=== PATIENT | male | born 1970 | race Caucasian/White ===

== ENCOUNTER 2016-03-21 07:05 | Emergency (ER) | payer SELFPAY ==
[~2016-03-21] VITALS: Ht 165.1 cm; Wt 72.6 kg
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
[2016-03-21 07:50] LABS: BILIRUBIN,URINE NEGATIVE (NEGATIVE); KETONES,URINE NEGATIVE (NEGATIVE); LEUKOCYTE ESTERASE ,URINE NEGATIVE (NEGATIVE); NITRITE,URINE NEGATIVE (NEGATIVE); PH,URINE 5 (5-9); PROTEIN,URINE NEGATIVE (NEGATIVE); UROBILINOGEN,URINE NORMAL (NORMAL)
[2016-03-21 07:59] LABS: SQUAMOUS EPITHELIAL CELL,UR 0-2 /HPF
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
[2016-03-21] MEDS ORDERED: DICL50TA4 PO (08:13)
[2016-03-21] MEDS ORDERED: KETOROLAC 60 MG/2 ML VIAL IM ONE (08:15)
[2016-03-21 08:57] VITALS: BP 132/98
== END 2016-03-21 08:57 | disposition home or self-care (01) ==
LOC: EDUNIT# 07:05 → ER 07:09
DX: S20.211A Contusion of right front wall of thorax, initial encounter (principal); I10 Essential (primary) hypertension; Z87.891 Personal history of nicotine dependence; V86.59XA Driver of other special all-terrain or other off-road motor vehicle injured in nontraffic accident, initial encounter; Y99.8 Other external cause status
CPT/HCPCS: 71101; 81000; 96372

== ENCOUNTER 2021-01-18 18:01 | Emergency (ER) | payer SELFPAY ==
[~2021-01-18] VITALS: Ht 167.7 cm; Wt 76.0 kg
[~2021-01-18 18:01] MED LIST: DICL50TA4 PO
--- NOTE | 2021-01-18 19:04 | ED General ---
General Stated Complaint: COVID EXPOSURE, "HEAD COLD" Source of Information: Patient Exam Limitations: No Limitations History of Present Illness Date Seen by Provider: Jan 18, 2021 Time Seen by Provider: 18:40 Initial Comments This 50-year-old gentleman presents to the emergency room with complaints of mild cough and congestion and some mild abdominal cramping. The family had a Covid exposure over the and through his 's work. He denies any fever or other significant symptoms. Allergies and Home Medications Allergies Coded Allergies: No Known Drug Allergies (Verified , 03/03/09) Patient Home Medication List Home Medication List Reviewed: Yes Diclofenac Potassium (Diclofenac Potassium) 50 Mg Tablet, 50 MG PO Q6H PRN for rib pain Prescribed by: ARMAAN MCLAUGHLIN on 03/21/16 0813 Review of Systems Review of Systems Constitutional: no symptoms reported EENTM: see HPI Respiratory: see HPI Cardiovascular: no symptoms reported Gastrointestinal: see HPI Genitourinary: no symptoms reported Musculoskeletal: no symptoms reported Skin: no symptoms reported Psychiatric/Neurological: No Symptoms Reported Hematologic/Lymphatic: No Symptoms Reported Immunological/Allergic: no symptoms reported Past Culkbbu-Erqaso-Uihiww Hx Patient Social History Tobacco Use?: No Smoking Status: Former Smoker Substance use?: No Alcohol Use?: Yes Alcohol Frequency: Once in a while Past Medical History Surgeries: Yes Appendectomy Respiratory: No Cardiac: Yes Hypertension Reproductive Disorders: No Sexually Transmitted Disease: No Genitourinary: No Gastrointestinal: No Musculoskeletal: No Endocrine: No HEENT: No Cancer: No Psychosocial: No Integumentary: No Physical Exam Vital Signs Vital Signs - First Documented 01/18/21 18:36 Temp 36.8 Pulse 85 Resp 20 B/P (MAP) 131/103 (112) Pulse Ox 96 O2 Delivery Room Air Capillary Refill : Height, Weight, BMI Height: 5'5" Weight: 160lbs. oz. [id number]; BMI Method:Stated General Appearance: No Apparent Distress, WD/WN HEENT: PERRL/EOMI, TMs Normal, Normal ENT Inspection, Pharynx Normal Neck: Normal Inspection Respiratory: Lungs Clear, Normal Breath Sounds, No Accessory Muscle Use Cardiovascular: Regular Rate, Rhythm, No Edema, No Murmur Gastrointestinal: Normal Bowel Sounds, Non Tender, Soft Extremity: Normal Inspection, No Pedal Edema Neurologic/Psychiatric: Alert, Oriented x3, No Motor/Sensory Deficits, Normal Mood/Affect Skin: Normal Color, Warm/Dry Progress/Results/Core Measures Suspected Sepsis SIRS Temperature: Pulse: Respiratory Rate: Blood Pressure / Mean: Results/Orders Lab Results Laboratory Tests Test 01/18/21 18:58 Range/Units Influenza Type A Antigen NEGATIVE NEGATIVE Influenza Type B Antigen NEGATIVE NEGATIVE My Orders Orders - KIMBERLI LEROY MD Coronavirus Sars-Cov-2 So 2019 (01/18/21 19:00) Influenza A & B Antigens (01/18/21 19:00) Vital Signs/I&O 01/18/21 01/18/21 18:36 19:40 Temp 36.8 36.5 Pulse 85 78 Resp 20 20 B/P (MAP) 131/103 (112) 142/99 Pulse Ox 96 96 O2 Delivery Room Air Room Air Capillary Refill : Progress Note : Progress Note Influenza screen negative. COVID-19 send out test is pending. Note given for work. Departure Impression Primary Impression: Flu-like symptoms Disposition: HOME, SELF-CARE Condition: Stable Departure-Patient Inst. Decision time for Depature: 19:00 Referrals: NO,LOCAL PHYSICIAN (PCP/Family) Primary Care Physician Patient Instructions: COVID-19 ED, Flu Add. Discharge Instructions: Drink plenty of clear liquids to stay well-hydrated. For pain and fever you may take ibuprofen up to 600 mg every 6 hours and/or Tylenol (acetaminophen) up to 1000 mg every 6 hours as needed. Remain in isolation until the result of your COVID-19 test is known. This should result within 24 hours. Call with questions or concerns. Return to the ER if you have worsening symptoms. Work/School Note: Work Release Form Date Seen in the Emergency Department: Jan 18, 2021 Return to Work: Jan 20, 2021 Restrictions: Return-No Fever (24hrs), Return-No Vomiting(24hrs) Other Restrictions Listed Below: May return if COVID-19 test negative and symptoms improved. KIMBERLI LEROY MD Jan 18, 2021 19:04
[2021-01-18 19:40] VITALS: BP 142/99
== END 2021-01-18 19:40 | disposition home or self-care (01) ==
LOC: EDUNIT# 18:01 → ER 18:02
DX: J11.1 Influenza due to unidentified influenza virus with other respiratory manifestations (principal); I10 Essential (primary) hypertension; Z87.891 Personal history of nicotine dependence; Z20.822 Contact with and (suspected) exposure to COVID-19
CPT/HCPCS: 87635; 87636; 87804; 99283